=== PATIENT | male | born 1970 | race Caucasian/White ===

== ENCOUNTER 2021-05-19 09:37 | Inpatient (IN) | payer OTHER ==
[~2021-05-19] VITALS: Ht 180.3 cm; Wt 101.8 kg
--- NOTE | 2021-05-19 09:49 | PHYS DOC ---
Adult General Chief Complaint Chief Complaint: SHORTNESS OF BREATH HPI HPI Patient is a 50-year-old male presenting for Covid. This is a known diagnosis. Reports he started becoming symptomatic approximately 6 days ago. Reports he saw primary care physician 48 hours after symptom onset and was hemodynamically stable with an unremarkable chest x-ray, it was deemed that he had bronchitis and so patient was sent home for continued supportive care. Nonetheless, other family members at home started getting sick and patient's daughter got tested 48 hours after outpatient PCP visit and was positive for Covid. Patient shortly after got tested and was found to be Covid +48 hours ago. States he has been trying to provide supportive care to self ever since. Denies any fever, URI or GI symptoms. States he is unsure if he is lost his sense of taste or smell. Reports his appetite is gone and he has had extremely poor p.o. intake and sub sequent urine output. He just "feels bad". Does admit history of DVT for which she is on treatment dose of Eliquis, no other significant past medical history reported Review of Systems Review of Systems Fourteen body systems of review of systems have been reviewed. See HPI for pertinent positives and negative responses, other boothe all other systems are negative, non-pertinent or non-contributory Allergies Allergies Allergies Coded Allergies Type Severity Reaction Last Updated Verified Penicillins Allergy Unknown 05/19/21 Yes Physical Exam Physical Exam Constitutional: Well developed, well nourished, no acute distress, non-toxic ap pearance. HENT: Normocephalic, atraumatic, bilateral external ears normal, oropharynx dry, no oral exudates, nose normal. Eyes: PERRLA, EOMI, conjunctiva normal, no discharge. Neck: Normal range of motion, no tenderness, supple, no stridor. Cardiovascular: Heart rate tachycardic, sinus rhythm, no murmurs rubs or gallops Lungs & Thorax: Bibasilar crackles, no obvious respiratory failure or increased work of breathing, patient does have appreciable oxygen desaturations with physical exertion less than 90% on room air Abdomen: Bowel sounds normal, soft, no tenderness, no masses, no pulsatile masses. Nonsurgical abdomen, no peritoneal signs Skin: Warm, dry, no erythema, no rash. Back: No tenderness, no CVA tenderness. Extremities: No tenderness, no cyanosis, no clubbing, ROM intact, no edema. Neurologic: Alert and oriented X 3, grossly normal motor & sensory function, no focal deficits noted. Psychologic: Depressed affect and mood Current Patient Data Vital Signs Vital Signs Date Time Temp Pulse Resp B/P (MAP) Pulse Ox O2 Delivery O2 Flow Rate FiO2 05/19/21 09:47 99.3 99 16 137/91 92 Room Air Vital Signs Date Time Temp Pulse Resp B/P (MAP) Pulse Ox O2 Delivery O2 Flow Rate FiO2 05/19/21 11:43 89 16 132/89 (103) 92 Room Air 05/19/21 09:47 99.3 Lab Results Laboratory Tests Test 05/19/21 10:23 White Blood Count 5.8 x10^3/uL Red Blood Count 5.56 x10^6/uL Hemoglobin 15.9 g/dL Hematocrit 47.0 % Mean Corpuscular Volume 85 fL Mean Corpuscular Hemoglobin 29 pg Mean Corpuscular Hemoglobin Concent 34 g/dL Red Cell Distribution Width 13.3 % Platelet Count 168 x10^3/uL Neutrophils (%) (Auto) 70 % Lymphocytes (%) (Auto) 22 % Monocytes (%) (Auto) 8 % Eosinophils (%) (Auto) 0 % Basophils (%) (Auto) 0 % Neutrophils # (Auto) 4.0 x10^3uL Lymphocytes # (Auto) 1.3 x10^3/uL Monocytes # (Auto) 0.5 x10^3/uL Eosinophils # (Auto) 0.0 x10^3/uL Basophils # (Auto) 0.0 x10^3/uL Sodium Level 133 mmol/L Potassium Level 4.0 mmol/L Chloride Level 95 mmol/L Carbon Dioxide Level 27 mmol/L Anion Gap 11 Blood Urea Nitrogen 11 mg/dL Creatinine 1.0 mg/dL Estimated GFR (Cockcroft-Gault) 79.1 BUN/Creatinine Ratio 11 Glucose Level 268 mg/dL Calcium Level 8.7 mg/dL Total Bilirubin 0.4 mg/dL Aspartate Amino Transf (AST/SGOT) 28 U/L Alanine Aminotransferase (ALT/SGPT) 28 U/L Alkaline Phosphatase 78 U/L Troponin I Quantitative < 0.017 ng/mL HZ-Ono-L-Type Natriuretic Peptide 24 pg/mL Total Protein 7.3 g/dL Albumin 3.5 g/dL Albumin/Globulin Ratio 0.9 Current Medications Medications (Trade) Dose Ordered Sig/Anthony Route PRN Reason Start Time Stop Time Status Last Admin Dose Admin Sodium Chloride 1,000 ml @ 1,000 mls/hr 1X ONCE IV 05/19/21 10:15 05/19/21 11:14 DC 05/19/21 10:15 Ondansetron HCl (Zofran) 4 mg PRN Q4HRS PRN IVP NAUSEA/VOMITING 05/19/21 12:30 05/20/21 12:29 Acetaminophen (Tylenol) 650 mg PRN Q4HRS PRN PO FEVER > 100.3'F 05/19/21 12:30 05/20/21 12:29 Nitroglycerin (Nitrostat) 0.4 mg PRN Q5MIN PRN SL CHEST PAIN 05/19/21 12:30 05/20/21 12:29 Albuterol/ Ipratropium (Duoneb) 3 ml RTQID NEB 05/19/21 16:00 05/19/21 12:29 DC Azithromycin 500 mg/Sodium Chloride 250 ml @ 250 mls/hr 1X ONCE IV 05/19/21 12:30 05/19/21 13:29 DC Prednisone (Prednisone) 60 mg 1X ONCE PO 05/19/21 12:30 05/19/21 12:31 DC Sodium Chloride 1,000 ml @ 175 mls/hr 1X ONCE IV 05/19/21 12:30 05/19/21 18:12 Albuterol Sulfate (Ventolin Hfa Inhaler) 1 puff 1X ONCE INH 05/19/21 12:30 05/19/21 12:34 DC 05/19/21 12:30 EKG EKG EKG ordered and interpreted by myself at 1014 hrs. as sinus tachycardia at 104 bpm, unremarkable intervals, right axis deviation, no obvious ischemic findings, STEMI Radiology/Procedures Radiology/Procedures AP chest. HISTORY: Cough, Covid-19 positive AP view was taken of the chest. Patient's taken a poor inspiration. There are mild hazy bilateral areas of infiltrate would suggest possible Covid-19 pneumonia, some of the density in the lung bases could be atelectasis. There is no pleural effusion. Heart is within normal limits in size. IMPRESSION: 1. Poor inspiration. 2. Hazy atelectasis or infiltrates in the lung bases. Electronically signed by: Tr Van MD (05/19/2021 10:20 AM) [facility] Heart Score C/O Chest Pain: No HEART Score for Chest Pain: HEART Score for Chest Pain Response (Comments) Value History Slighlty/Non-Suspicious 0 ECG Nonspecific Repolarizatio 1 Age >45 - < 65 1 Risk Factors 1 or 2 Risk Factors 1 Troponin < Normal Limit 0 Total 3 Risk Factors: Risk Factors: DM, Current or recent (<one month) smoker, HTN, HLP, family history of CAD, obesity. Risk Scores: Risk Factors: DM, Current or recent (<one month) smoker, HTN, HLP, family history of CAD, obesity. Course & Med Decision Making Course & Med Decision Making Airway patent, oxygenation somewhat impaired but ventilating fine, IV access and vitals obtained concerning for hypoxia on physical exertion and slight tachycardia HPI and physical exam consistent with known Covid diagnosis. Comprehensive ER work-up concerning for bibasilar infiltrates consistent with pneumonia Patient responded to ER care provided such as IV fluid rehydration. With that said, patient still desaturating less than 90% with physical exertion on room air and requiring supplemental oxygen for which she does not have at home I discussed potential plan of care with patient. He feels he is too weak and at high risk to continue to provide self-care and care to other family members at home given his current state. I contacted hospitalist and discussed case and need for hospital admission for continued inpatient antibiotics, steroids and other supportive care practices for known Covid positive individual, he agreed and accepted patient under his care I updated patient on proposed plan of care and he was amenable. I discussed at present there is little indication for further diagnostic work-up of tachycardia and/or potential of blood clot given that he is on treatment dose of Eliquis and patient slight tachycardia and hypoxia best explained by known Covid diagnosis at present Critical Care Time This patient required critical care. Due to the fact that the patient required a significant amount of one on one physician - patient contact time, ordering and review of studies, arranging urgent treatment with development of a management plan, evaluation of patients response to treatment with frequent reassessments, and discussions with other providers this patient required 40 minutes of critical care time. Critical care time was indicated due to the inherent instability and/or potential for instability in this patient. The critical care time that is allocated to this patient is above and beyond any time spent on any other billable procedures performed on this patient. Dragon Disclaimer Dragon Disclaimer This electronic medical record was generated, in whole or in part, using a voice recognition dictation system. Departure Departure: Impression: Primary Impression: COVID-19 Additional Impression: Hypoxia Disposition: ADMITTED INPATIENT Admitting Physician: Jenni Childs Condition: STABLE Problem Qualifiers KAYY CASTRO DO May 19, 2021 09:49
[2021-05-19] MEDS ORDERED: IV NORMAL SALINE 1,000ML 1,000 ML IV ONE ×2 (10:15→12:30)
--- NOTE | 2021-05-19 10:16 | EKG ---
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
--- NOTE | 2021-05-19 10:22 | RAD ---
AP chest. HISTORY: Cough, Covid-19 positive AP view was taken of the chest. Patient's taken a poor inspiration. There are mild hazy bilateral are as of infiltrate would suggest possible Covid-19 pneumonia, some of the density in the lung bases cou ld be atelectasis. There is no pleural effusion. Heart is within normal limits in size. IMPRESSION: 1. Poor inspiration. 2. Hazy atelectasis or infiltrates in the lung bases. Electronically signed by: Tr Van MD (05/19/2021 10:20 AM) [facility]
[2021-05-19 10:43] LABS: BASO % 0 % (0-3); EOS % 0 % (0-3); HEMOGLOBIN 15.9 g/dL (13.0-17.5); LYMPH # 1.3 x10^3/uL (1.0-4.8); LYMPH % 22 % (24-48); MEAN CORPUSCULAR HEMOGLOBIN 29 pg (25-35); MEAN CORPUSCULAR HGB CONC 34 g/dL (31-37); MEAN CORPUSCULAR VOLUME 85 fL (79-100); MONO # 0.5 x10^3/uL (0.0-1.1); MONO % 8 % (0-9); NEUT % 70 % (31-73); PLATELET COUNT 168 x10^3/uL (140-400); RED BLOOD COUNT 5.56 x10^6/uL (4.30-5.70); RED CELL DISTRIBUTION WIDTH 13.3 % (11.5-14.5); WHITE BLOOD COUNT 5.8 x10^3/uL (4.0-11.0)
[2021-05-19 10:51] LABS: CALCIUM 8.7 mg/dL (8.5-10.1); GFR 79.1
[2021-05-19 11:04] LABS: ALBUMIN 3.5 g/dL (3.4-5.0); ALBUMIN/GLOBULIN RATIO 0.9 (1.0-1.7); TOTAL BILIRUBIN 0.4 mg/dL (0.2-1.0); TOTAL PROTEIN 7.3 g/dL (6.4-8.2)
[2021-05-19] MEDS ORDERED: ALBUTEROL SULFATE 8GM INHALER. INH ONE (12:30)
[2021-05-19] MEDS ORDERED: NITROGLYCERIN SUBLINGUAL 0.4 MG BOTTLE OF 25. SL PRN (12:30)
[2021-05-19] MEDS ORDERED: ONDANSETRON PF 4 MG/2 ML VIAL. IVP PRN (12:30)
[2021-05-19] MEDS ORDERED: ACETAMINOPHEN 325 MG TABLET PO PRN (12:30)
[2021-05-19] MEDS ORDERED: predniSONE 20 MG TABLET PO ONE (12:30)
[2021-05-19] MEDS ORDERED: AZITHROMYCIN 500 MG in IV NORMAL SALINE 250ML 250 ML IV ONE ×2 (12:30→16:30)
[2021-05-19 15:30] VITALS: BP 140/92
[2021-05-19] MEDS ORDERED: IPRATRPIUM/ALBUTEROL 0.5/2.5MG 3 ML NEBU. NEB SCH (16:00)
[2021-05-19] MEDS ORDERED: METF10007 PO (16:38)
[2021-05-19] MEDS ORDERED: GLIM2TAB7 PO (16:38)
[2021-05-19] MEDS ORDERED: APIX5TAB3 PO (16:38)
[2021-05-19] MEDS ORDERED: LISI20TA18 PO (16:38)
[2021-05-19] MEDS ORDERED: METO-239 PO (16:38)
[2021-05-19] MEDS ORDERED: DEXTROSE 50% 25 GM / 50ML DISP.SYRIN. IV PRN (17:00)
--- NOTE | 2021-05-19 17:09 | NUR ---
ADMIT FROM ED. Arrives via EMS on stretcher. Placed in (-) pressure isolation. VS assessed, assessments completed. IV azithromycin discontinued, new medications ordered. Seen by Dr Childs.
[2021-05-19] MEDS: IPRATROPIUM/ALBUTEROL 20/100mcg/INH INHALER. INH SCH ×2 (17:15→20:24)
--- NOTE | 2021-05-19 18:38 | NUR ---
Pt resting comfortably in bed. 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 VSS and GCS 15 at this time. CC, RN
--- NOTE | 2021-05-19 18:38 | HP ---
ADMIT DATE: 05/19/2021 HISTORY OF PRESENT ILLNESS: The patient is a 50-year-old male patient who presented to the Emergency Room with COVID infection, and he reported that his symptoms started about 6 days ago. He saw his primary care physician 48 hours after symptom onset and was hemodynamically stable with an unremarkable chest x-ray and was told that he has bronchitis and so patient was sent home for continued supportive care. Nonetheless, other family members at home started getting sick and his daughter was tested last Saturday positive after outpatient primary care visit and the patient himself got tested and was found to be positive about 48 hours ago. He states that he has been trying to provide supportive care to self ever since. Denied any fever, GI symptoms. States he is unsure if he has lost his sense of taste or smell. Reports appetite has gone and he has had an extremely poor p.o. intake and subsequent urine output. Just feels bad. He has a history of DVT and PE, for which he is on treatment with Eliquis, but no other significant medical illnesses. He was extensively investigated in the Emergency Room. His lab work showed a white cell count was 5800, hemoglobin and hematocrit are normal as well as platelets. His chemistry showed that he has hyperglycemia, but no other abnormalities in particular, liver enzymes are all normal. His chest x-ray showed hazy atelectasis or infiltrate in the lung bases. The patient was therefore admitted for COVID-19 pneumonia and was started on IV antibiotic as well as IV Solu-Medrol. He is already on Eliquis for treatment of DVT. As he was also hypoxic, he was started on oxygen supplementation with 2 liters of oxygen. PAST MEDICAL HISTORY: Significant for type 2 diabetes mellitus. He has a history of bronchial asthma, gastroesophageal reflux disease, history of DVT and PE, for which he is on Eliquis, diagnosed about 10 years ago. The patient stated that he has been seen by climbing guide and extensive investigation failed to find a cause for his DVT that were apparently unprovoked. PAST SURGICAL HISTORY: Significant for tonsillectomy and left wrist surgery. ALLERGIES: ALLERGIC TO PENICILLIN. MEDICATIONS: He is currently on apixaban 5 mg twice a day, metoprolol succinate 25 mg once a day, lisinopril 20 mg once a day, metformin 1000 mg twice a day, and glimepiride 2 mg once a day. FAMILY HISTORY: He had one older sister who at age of 16 because of brain tumor. Father is still alive at the age of 75 and has diabetes. Mother alive at the age of 70 and has diabetes. SOCIAL HISTORY: He is , has 2 daughters and 2 sons. He quit smoking 30 years ago. Drinks alcohol occasionally. Does not use any drugs. He works at [email or web address]. REVIEW OF SYSTEMS: Unremarkable. PHYSICAL EXAMINATION: GENERAL: On examining him, he looked well and was clearly in no apparent respiratory distress. No pallor, jaundice, cyanosis, or thyromegaly. No jugular venous distention. No limb edema. VITAL SIGNS: His heart rate was 99, blood pressure is 137/91, temperature was 99.3, respiratory rate was 16, and oxygen saturation was 92% on room air. HEAD, EYES, EARS, NOSE, AND THROAT: Normocephalic, atraumatic. NECK: Supple. HEART: Showed normal first and second heart sounds. No gallop or murmur. CHEST: Showed central trachea. Equal bilateral chest expansion, air entry. Vesicular breath sounds with bilateral basal crepitation posteriorly. ABDOMEN: Nondistended, soft, nontender. NEUROLOGIC: He was grossly intact. LABORATORY DATA: His white cell count was 5800, hemoglobin 15, hematocrit 47, MCV 85 and platelet count of 168,000. Serum sodium was 133, potassium 4, chloride 95, bicarbonate 27, anion gap of 11, BUN 11, creatinine 1, estimated GFR was 79 mL per minute. His glucose was 268, calcium was 8.7. Total bilirubin, AST, ALT, alkaline phosphatase were normal. Total protein was 7.3, albumin was 3.5. ASSESSMENT: COVID-19 pneumonia, acute hypoxic respiratory failure, type 2 diabetes mellitus, deep venous thrombosis and pulmonary embolism, on Eliquis, history of bronchial asthma and gastroesophageal reflux disease. PLAN: Continue with IV antibiotic in the form of ceftriaxone and azithromycin. Continue with Solu-Medrol and we will reconcile all his medication. I will also add sliding scale insulin. Monitor his labs on a daily basis. AQUILES DR: Ari TID: [id number]
[2021-05-19 19:00] VITALS: BP 138/74
[2021-05-19] MEDS: INSULIN LISPRO 300 UNITS/3 ML VIAL. SQ SCH (20:26)
[2021-05-19] MEDS: APIXABAN 5 MG TABLET. PO SCH (20:27)
[2021-05-19 23:00] VITALS: BP 123/81
[2021-05-19] MEDS: methylPREDNISolone SOD SUCC PF 40 MG/ML VIAL. IV SCH (23:30)
[2021-05-20] MEDS: methylPREDNISolone SOD SUCC PF 40 MG/ML VIAL. IV SCH ×2 (06:00→13:45)
[2021-05-20 06:49] VITALS: BP 124/79
[2021-05-20] MEDS: IPRATROPIUM/ALBUTEROL 20/100mcg/INH INHALER. INH SCH ×4 (08:25→21:13)
[2021-05-20] MEDS: APIXABAN 5 MG TABLET. PO SCH ×2 (08:25→21:13)
[2021-05-20] MEDS: metFORMIN 500 MG TABLET PO SCH ×2 (08:25→16:31)
[2021-05-20] MEDS: GLIMEPIRIDE 2 MG TABLET PO SCH (08:26)
[2021-05-20] MEDS: LACTOBACILLUS RHAMNOSUS GG 1 CAPSULE. PO SCH ×2 (08:26→21:13)
[2021-05-20] MEDS: METOPROLOL SUCC 24HR ER 25 MG TAB.ER.24H. PO SCH (08:26)
[2021-05-20] MEDS: LISINOPRIL 20 MG TABLET PO SCH (08:27)
[2021-05-20] MEDS: INSULIN LISPRO 300 UNITS/3 ML VIAL. SQ SCH ×3 (08:28→16:36)
[2021-05-20 11:09] VITALS: BP 124/82
[2021-05-20 15:45] VITALS: BP 117/73
--- NOTE | 2021-05-20 17:16 | NUR ---
Nursing note Pt has not complained of pain to this nurse during the shift. Pt is resting comfortably
[2021-05-20] MEDS ORDERED: ZOLPIDEM 5 MG TABLET. PO PRN (17:45)
[2021-05-20] MEDS ORDERED: PROMETH/CODEINE 6.25/10MG 5 ML SYRUP. PO PRN (17:45)
[2021-05-20] MEDS ORDERED: AZITHROMYCIN 250 MG TABLET. PO ONE (17:45)
[2021-05-20 19:30] VITALS: BP 116/80
[2021-05-20] MEDS ORDERED: INSULIN GLARGINE SYRINGE. SQ SCH (21:00)
[2021-05-20] MEDS: DEXAMETHASONE SOD PHOS 4 MG/ML VIAL. IVP SCH (21:13)
--- NOTE | 2021-05-20 21:58 | PN ---
DATE: 05/20/2021 SUBJECTIVE: A 50-year-old male came in through the Emergency Room and was noted with COVID-19 pneumonia, acute hypoxic respiratory failure, type 2 diabetes, deep venous thrombosis, pulmonary emboli, on Eliquis, history of bronchial asthma, gastroesophageal reflux. The patient does say he is feeling a little bit better today. OBJECTIVE: VITAL SIGNS: His blood pressure 120/80, respiratory rate 17, pulse 104, afebrile, 2 liters at just 92%. The patient is receiving Combivent inhaler as well as on a sliding scale of insulin, Prinivil. He is on 40 mg of methylprednisolone, Nexium 40 mg q. 8 hours, Eliquis 5 mg. He is on Levaquin. IMPRESSION: The 50-year-old gentleman with COVID-19 pneumonia, acute hypoxic respiratory failure, type 2 diabetes, DVT, history of PE, on Eliquis. Continue with present drug regimen. PLAN: The patient will continued to be monitored carefully. We will make some adjustments on the medications. Otherwise, he is doing reasonably well and we will continue to monitor him as he is a high risk individual. ASH DR: Karin TID: [id number]
--- NOTE | 2021-05-21 01:57 | PN ---
SUBJECTIVE: The patient is sitting comfortably in his chair, no apparent distress. He denied any chest pain, continued to have shortness of breath on exertion, cough with scanty sputum, did spike his temperature last night to 102.2 Fahrenheit. PHYSICAL EXAMINATION: GENERAL: When I examined him this morning, he looked well and was clearly in no apparent respiratory distress. No pallor, jaundice, cyanosis or thyromegaly. No jugular venous distention. No lower limb edema. VITAL SIGNS: His heart rate was 71, blood pressure is 124/79, temperature was 97.9, respiratory rate was 16 and oxygen saturation was 92% on 2 liters of oxygen. HEAD, EYES, EARS, NOSE AND THROAT: Normocephalic, atraumatic. NECK: Supple. HEART: Showed normal first and second heart sounds, no gallop or murmur. CHEST: Showed central trachea, equal bilateral chest expansion, air entry, ____ with bilateral basal crepitation, more so on the right than left. I could not appreciate any rhonchi. ABDOMEN: Distended, soft, nontender. NEUROLOGIC: He was grossly intact. His intake and output are incompletely recorded. LABORATORY DATA: No lab work was done this morning. His blood sugar this morning was ____. ASSESSMENT: 1. COVID-19 pneumonia. 2. Acute hypoxic respiratory failure. 3. Questionable superimposed community-acquired pneumonia. 4. Type 2 diabetes mellitus. 5. Bronchial asthma. 6. Gastroesophageal reflux disease. 7. History of deep venous thrombosis and pulmonary embolism for which he is on Eliquis, diagnosed about 10 years ago. PLAN: To continue with IV antibiotic in the form of Levaquin. Continue with IV Solu-Medrol. Continue with albuterol and Atrovent in the form of Respimat 1 puff 4 times a day. Continue with apixaban for DVT and PE. Continued to monitor blood sugar. Adjust insulin as needed. He is already on metformin and glimepiride as well as insulin sliding scale. I will add also Lantus 10 units at nighttime. LEONOR/ZULEIMA/MONA DR: LEONOR/giovany TID: [id number]
[2021-05-21] MEDS: DEXAMETHASONE SOD PHOS 4 MG/ML VIAL. IVP SCH ×3 (05:57→22:40)
[2021-05-21 06:29] VITALS: BP 125/68
[2021-05-21 06:31] LABS: HEMATOCRIT 44.5 % (39.0-53.0); HEMOGLOBIN 14.8 g/dL (13.0-17.5); RED BLOOD COUNT 5.19 x10^6/uL (4.30-5.70); RED CELL DISTRIBUTION WIDTH 13.6 % (11.5-14.5); WHITE BLOOD COUNT 11.6 x10^3/uL (4.0-11.0)
[2021-05-21 06:52] LABS: ALBUMIN 3.2 g/dL (3.4-5.0); ALBUMIN/GLOBULIN RATIO 0.7 (1.0-1.7); CALCIUM 9.5 mg/dL (8.5-10.1); CREATININE 1.1 mg/dL (0.7-1.3); GFR 70.9; POTASSIUM 4.2 mmol/L (3.5-5.1); TOTAL BILIRUBIN 0.4 mg/dL (0.2-1.0); TOTAL PROTEIN 7.8 g/dL (6.4-8.2)
[2021-05-21] MEDS: IPRATROPIUM/ALBUTEROL 20/100mcg/INH INHALER. INH SCH ×4 (07:54→20:00)
[2021-05-21] MEDS: metFORMIN 500 MG TABLET PO SCH ×2 (07:54→17:00)
[2021-05-21] MEDS: LACTOBACILLUS RHAMNOSUS GG 1 CAPSULE. PO SCH ×2 (07:56→21:00)
[2021-05-21] MEDS: AZITHROMYCIN 250 MG TABLET. PO SCH (07:57)
[2021-05-21] MEDS: LISINOPRIL 20 MG TABLET PO SCH (07:57)
[2021-05-21] MEDS: APIXABAN 5 MG TABLET. PO SCH (07:57)
[2021-05-21] MEDS: GLIMEPIRIDE 2 MG TABLET PO SCH (07:57)
[2021-05-21] MEDS: METOPROLOL SUCC 24HR ER 25 MG TAB.ER.24H. PO SCH (07:58)
[2021-05-21] MEDS ORDERED: INSULIN LISPRO 300 UNITS/3 ML VIAL. SQ SCH (08:00)
[2021-05-21] MEDS: INSULIN LISPRO 300 UNITS/3 ML VIAL. SQ SCH ×5 (08:25→17:12)
[2021-05-21] MEDS ORDERED: INSULIN GLARGINE SYRINGE. SQ SCH (11:30)
--- NOTE | 2021-05-21 12:38 | RAD ---
Single view chest dated 05/21/2021 12:34 PM: COMPARISON: 05/19/2021 Clinical Indication: Shortness breath. Findings: Single upright portable exam of the chest was performed. Heart and mediastinal contours are stable. T here is patchy and linear perihilar opacities, similar to prior study. Lung volumes are low, limiting evaluation. No new infiltrate or pneumothorax. IMPRESSION: Patchy perihilar airspace disease, not significantly changed. Electronically signed by: Fco Santoyo MD (05/21/2021 12:35 PM) [id number]
[2021-05-21 14:45] VITALS: BP 107/66
[2021-05-21 19:00] VITALS: BP 118/68
[2021-05-21] MEDS: INSULIN GLARGINE SYRINGE. SQ SCH (21:00)
--- NOTE | 2021-05-21 21:54 | PN ---
SUBJECTIVE: A 50-year-old white male with a history of COVID-19 pneumonia, acute respiratory failure, history of asthma, oxygen dependent, hypoxic. The patient seems to be doing a little better today. Still requiring oxygen 2 liters. He is at 90% nasal cannula. OBJECTIVE: VITAL SIGNS: Blood pressure 125/60, respiratory rate 20, pulse 100, afebrile. GENERAL: Pleasant, alert and oriented, better color to the skin. The patient's speech fluent, spontaneous, appropriate. LUNGS: Diminished throughout, but basically has decreased as indicated, poor movement of air, but clear. Chest x-ray was repeated and basically unremarkable compared to the previous one or unchanged. CARDIOVASCULAR: Tachycardic as indicated, but unremarkable. No chest pain. HEENT: Head was atraumatic, normocephalic. Eyes: PERRLA without jaundice. The mouth and throat were normal. NECK: Supple. No JVD or thyromegaly. Blood sugars are still elevated with the Decadron being used. He is on Lovenox prophylactically. IMPRESSION: COVID-19 pneumonia, acute hypoxic respiratory failure, questionable superimposed community acquired pneumonia, type 2 diabetes, bronchial asthma, gastroesophageal reflux disease, history of deep venous thrombosis and pulmonary embolus for which he is on Eliquis, diagnosed about 10 years ago for that matter. ANTONIO DR: Karin TID: [id number]
[2021-05-21] MEDS: ENOXAPARIN 40 MG/0.4 ML SYRINGE. SQ SCH (22:40)
[2021-05-21 23:00] VITALS: BP 107/71
[2021-05-22] VITALS (7 sets, daily range): BP systolic 97–114; BP diastolic 50–77
[2021-05-22] MEDS: DEXAMETHASONE SOD PHOS 4 MG/ML VIAL. IVP SCH ×3 (06:00→20:13)
[2021-05-22] MEDS: IPRATROPIUM/ALBUTEROL 20/100mcg/INH INHALER. INH SCH (08:07)
[2021-05-22] MEDS: GLIMEPIRIDE 2 MG TABLET PO SCH (08:08)
[2021-05-22] MEDS: METOPROLOL SUCC 24HR ER 25 MG TAB.ER.24H. PO SCH (08:08)
[2021-05-22] MEDS: AZITHROMYCIN 250 MG TABLET. PO SCH (08:08)
[2021-05-22] MEDS: metFORMIN 500 MG TABLET PO SCH ×2 (08:08→17:26)
[2021-05-22] MEDS: LACTOBACILLUS RHAMNOSUS GG 1 CAPSULE. PO SCH ×2 (08:08→20:14)
[2021-05-22] MEDS: ENOXAPARIN 40 MG/0.4 ML SYRINGE. SQ SCH ×2 (08:09→20:14)
[2021-05-22] MEDS: INSULIN LISPRO 300 UNITS/3 ML VIAL. SQ SCH ×6 (08:10→17:28)
[2021-05-22] MEDS: LISINOPRIL 20 MG TABLET PO SCH (10:38)
[2021-05-22] MEDS: IPRATRPIUM/ALBUTEROL 0.5/2.5MG 3 ML NEBU. NEB SCH ×3 (12:20→21:30)
[2021-05-22] MEDS ORDERED: FUROSEMIDE 40 MG/4 ML VIAL IVP ONE (17:45)
[2021-05-22] MEDS: MORPHINE SULFATE 2 MG/ML DISP.SYRIN. IV PRN (18:49)
[2021-05-22] MEDS: INSULIN GLARGINE SYRINGE. SQ SCH (20:27)
--- NOTE | 2021-05-23 02:21 | NUR ---
NURSING NOTE Sleeping soundly at present, awakens easily to voice; O2 Sats steadily improving during this shift, 93-95% on 5L O2 via nasal canula; has not required any additional morphine admin as of this writing; lungs CTA bilat with diminished bases, reports occasional non-productive cough; no stated SOA while at rest; telemetry shows NSR 70's-80's without ectopy; VSS, afebrile; no voiced needs or concerns at this time; remains in isolation with facility COVID protocols in place; siderails up x2, call goodman in reach; will continue to monitor closely.
[2021-05-23] MEDS: DEXAMETHASONE SOD PHOS 4 MG/ML VIAL. IVP SCH ×2 (04:59→15:27)
[2021-05-23 05:16] VITALS: BP 105/61
--- NOTE | 2021-05-23 05:28 | PN ---
SUBJECTIVE: The patient with COVID-19 pneumonia as well as acute respiratory failure as well as type 2 diabetes, poorly controlled. The patient has been having trouble maintaining his oxygen and has been desaturating down to 88% on 5 liters. He will be given a dose of Lasix to see if this ____ help him as his lungs were diminished, maybe some crackles noted in the lower lung bases. Chest x-ray did not show anything in particular. OBJECTIVE: VITAL SIGNS: His last blood pressure 105/68, respiratory rate 20, pulse 90, afebrile, 5 liters, 88%. The patient on nasal cannula. GENERAL: The patient otherwise feels fairly good. He is alert, oriented. Speech fluent, spontaneous, appropriate. Not short of breath with talking. However, the patient does have these crackles noted at the bases. CARDIOVASCULAR: Regular sinus rhythm. ABDOMEN: Soft, nontender. EXTREMITIES: Trace edema. NEUROLOGIC: Intact. Otherwise, will continue to be monitored on him carefully and we will try him on the Lasix and make further evaluation as we progress. Also, adjusting his sliding scale to meet the needs of his increase on his blood sugars heightened with the Decadron. ASSESSMENT AND PLAN: COVID-19 pneumonia, acute hypoxic respiratory failure, questionable superimposed community-acquired pneumonia, type 2 diabetes, bronchial asthma, fluid retention, gastroesophageal reflux disease, history of deep venous thrombosis. He is on Lovenox, however. The patient to continue on present drug regimen, IV antibiotic therapy and monitor accordingly and blood sugars as well as his respiratory efforts, see what the Lasix does as far as diuresing and hopefully getting his oxygen supply back up. Otherwise, we will continue on the Zithromax and Decadron. FRANCISCO/ALISHA/RANI DR: Karin TID: [id number]
[2021-05-23] MEDS: IPRATRPIUM/ALBUTEROL 0.5/2.5MG 3 ML NEBU. NEB SCH ×3 (06:02→13:05)
[2021-05-23 07:18] LABS: CALCIUM 8.9 mg/dL (8.5-10.1); CREATININE 1.1 mg/dL (0.7-1.3); GFR 70.9
[2021-05-23] MEDS: METOPROLOL SUCC 24HR ER 25 MG TAB.ER.24H. PO SCH (08:19)
[2021-05-23] MEDS: metFORMIN 500 MG TABLET PO SCH (08:19)
[2021-05-23] MEDS: LACTOBACILLUS RHAMNOSUS GG 1 CAPSULE. PO SCH (08:19)
[2021-05-23] MEDS: LISINOPRIL 20 MG TABLET PO SCH (08:19)
[2021-05-23] MEDS: GLIMEPIRIDE 2 MG TABLET PO SCH (08:19)
[2021-05-23] MEDS: AZITHROMYCIN 250 MG TABLET. PO SCH (08:19)
[2021-05-23] MEDS: ENOXAPARIN 40 MG/0.4 ML SYRINGE. SQ SCH (08:20)
[2021-05-23] MEDS: INSULIN LISPRO 300 UNITS/3 ML VIAL. SQ SCH ×4 (08:21→12:25)
--- NOTE | 2021-05-23 08:40 | RAD ---
XR CHEST 1V History: Reason: sob, covid + / Spl. Instructions: / History: Comparison: May 21, 2021 Findings: Low lung volumes. Increased multifocal pulmonary opacities. No pleural effusion. No pneumothorax. Unc hanged heart size. Impression: 1. Increased multifocal pulmonary opacities. 2. Low lung volumes. Electronically signed by: Yan Adams DO (05/23/2021 8:37 AM) [id number]
[2021-05-23] MEDS: MORPHINE SULFATE 2 MG/ML DISP.SYRIN. IV PRN (12:30)
[2021-05-23 12:33] VITALS: BP 101/63
[2021-05-23 13:20] LABS: BGAS PH 7.46 (7.35-7.46)
--- NOTE | 2021-05-23 17:07 | NUR ---
nursing note report called to luh at [facility] [place] at 1433 pt left via ems at 1700.
--- NOTE | 2021-05-24 10:36 | DS ---
DATE OF DISCHARGE: 05/23/2021 HOSPITAL COURSE: A 50-year-old male came in with acute respiratory failure. The patient had been traveling to [facility], apparently contracted COVID-19. The patient has a history of diabetes. The patient was brought in with acute respiratory therapy as well as he was started with Decadron as well as Zithromax and secondary antibiotic therapy as well as aggressive pulmonary toilet and Lovenox. Blood sugars were monitored, placed on sliding scale. The patient's chest x-ray initially demonstrated poor inspiration, possibly some infiltrates. CTA itself demonstrated a situation of possible diffuse increased multifocal pulmonary opacities. This progressed despite being on IV antibiotic therapy and the other drug regimens as indicated above. As a result of this, the patient at first did show signs of improvement in terms of his oxygen saturation and was hovering in the low 90s. However, he began to progress. He for whatever reason began to desaturate into the upper 80s and had to go up on 7 L, placed on facemask. Because of his overall deterioration and despite he was also placed on remdesivir as well as the Decadron, Zithromax protocol, the patient was transferred down to [facility] for Pulmonary consultation not available at this institution. IMPRESSION: Acute respiratory failure, COVID-19 pneumonia, type 2 diabetes, moderate protein malnutrition, hypoxia. The patient continued to be monitored carefully and will be transferred via EMS down to [facility]. MIR DR: Karin TID: [id number]
== END 2021-05-23 18:09 | disposition short-term general hospital (02) | DRG 177 ==
LOC: ER 09:37 → 1 SOUTH 12:19
PROVIDERS: ADMIT Family Medicine; ATTEND Family Medicine
DX: U07.1 COVID-19 (principal); J12.82 Pneumonia due to coronavirus disease 2019; J96.01 Acute respiratory failure with hypoxia; E44.0 Moderate protein-calorie malnutrition; E11.65 Type 2 diabetes mellitus with hyperglycemia; Z68.31 Body mass index [BMI] 31.0-31.9, adult; J45.909 Unspecified asthma, uncomplicated; K21.9 Gastro-esophageal reflux disease without esophagitis; Z79.01 Long term (current) use of anticoagulants; Z83.3 Family history of diabetes mellitus; Z86.718 Personal history of other venous thrombosis and embolism; Z87.891 Personal history of nicotine dependence; Z99.81 Dependence on supplemental oxygen; Z88.0 Allergy status to penicillin; Z86.711 Personal history of pulmonary embolism
CPT/HCPCS: 36415; 71045; 80048; 80053; 82803; 82947; 83880; 84484; 85025; 85027; 93005; 94640; 94760; 96360; J1100; J1650; J1815; J1940; J1956; J2270; J2920; J7512; 94664; 99291-25; J7030

== ENCOUNTER → 2021-12-18 | Outpatient (CLI) | payer OTHER ==
[~2021-12-18] MED LIST: APIX5TAB3 PO; GLIM2TAB7 PO; LISI20TA18 PO; METF10007 PO; METO-239 PO
[2021-12-18 12:11] LABS: BASO % 1 % (0-3); EOS # 0.1 x10^3/uL (0.0-0.7); EOS % 2 % (0-3); HEMATOCRIT 46.7 % (39.0-53.0); HEMOGLOBIN 15.2 g/dL (13.0-17.5); LYMPH # 1.8 x10^3/uL (1.0-4.8); LYMPH % 27 % (24-48); MEAN CORPUSCULAR HEMOGLOBIN 28 pg (25-35); MEAN CORPUSCULAR HGB CONC 33 g/dL (31-37); MEAN CORPUSCULAR VOLUME 86 fL (79-100); MONO # 0.6 x10^3/uL (0.0-1.1); MONO % 8 % (0-9); NEUT # 4.3 x10^3uL (1.8-7.7); NEUT % 62 % (31-73); PLATELET COUNT 342 x10^3/uL (140-400); RED BLOOD COUNT 5.44 x10^6/uL (4.30-5.70); WHITE BLOOD COUNT 6.9 x10^3/uL (4.0-11.0)
[2021-12-18 12:42] LABS: ALBUMIN 3.7 g/dL (3.4-5.0); CALCIUM 9.2 mg/dL (8.5-10.1); CREATININE 0.9 mg/dL (0.7-1.3); PHOSPHORUS 3.9 mg/dL (2.6-4.7); POTASSIUM 4.3 mmol/L (3.5-5.1)
[2021-12-18 19:11] LABS: FREE T4 0.89 ng/dL (0.76-1.46)
[2021-12-18 19:12] LABS: THYROID STIM HORMONE (TSH) 3.978 uIU/mL (0.358-3.740)
[2021-12-19 01:14] LABS: HEMOGLOBIN A1C 11.7 % (4.8-5.6)
== END ==
LOC: LAB 11:24
PROVIDERS: ATTEND Family Medicine
DX: I82.432 Acute embolism and thrombosis of left popliteal vein (principal); E11.65 Type 2 diabetes mellitus with hyperglycemia; I26.02 Saddle embolus of pulmonary artery with acute cor pulmonale; R31.9 Hematuria, unspecified
CPT/HCPCS: 36415; 80061; 80069; 83036; 84439; 84443; 85025; 85610; 85730